=== PATIENT | female | born 1985 | race Caucasian/White ===

== ENCOUNTER 2020-05-19 21:28 | Emergency (ER) | payer MEDICAID ==
[~2020-05-19] VITALS: Ht 170.2 cm; Wt 102.3 kg
[~2020-05-19 21:28] MED LIST: DULO30CA96 PO; MELO-107 PO
[2020-05-19] MEDS ORDERED: IBUP-2070 PO (21:47)
[2020-05-20] MEDS: HYDROCODONE/ACETAMINOPHEN 5-325 MG TABLET PO ONE (00:24)
[2020-05-20 01:00] VITALS: BP 128/71
[2020-05-20] MEDS: KETOROLAC TROMETHAMINE 60 MG/2 ML VIAL IM ONE (01:18)
[2020-05-20] MEDS: METHOCARBAMOL 750 MG TABLET PO ONE (01:18)
== END 2020-05-20 01:35 | disposition home or self-care (01) ==
LOC: EMS 21:28
DX: M54.42 Lumbago with sciatica, left side (principal); J45.909 Unspecified asthma, uncomplicated; F17.210 Nicotine dependence, cigarettes, uncomplicated
CPT/HCPCS: 72100; 72170; 81025; 96372; 99284; J1885

== ENCOUNTER 2024-12-14 19:25 | Emergency (ER) | payer MEDICAID, OTHER ==
[~2024-12-14] VITALS: Ht 170.2 cm; Wt 75.5 kg
[~2024-12-14 19:25] MED LIST changes: -DULO30CA96 PO; +IBUP-1492 PO; -MELO-107 PO
[2024-12-14] MEDS ORDERED: OXYC5TAB3 PO (19:51)
[2024-12-14] MEDS ORDERED: METH-811 PO (19:51)
[2024-12-14] MEDS: KETOROLAC TROMETHAMINE 30 MG/ML VIAL IM ONE (23:01)
[2024-12-14] MEDS: LIDOCAINE 5% TRANSDERMAL PATCH TD ONE (23:01)
[2024-12-15] MEDS ORDERED: POLY17PO62 PO (00:36)
[2024-12-15 00:51] VITALS: BP 119/65; PULSE 68; RESP 16; TEMP 98.3; O2SAT 98
[2024-12-15] MEDS ORDERED: DOCU-385 PO (13:27)
== END 2024-12-15 01:17 | disposition home or self-care (01) ==
LOC: EMS 20:52
DX: M54.42 Lumbago with sciatica, left side (principal); M79.18 Myalgia, other site; J45.909 Unspecified asthma, uncomplicated; F17.210 Nicotine dependence, cigarettes, uncomplicated; Z88.0 Allergy status to penicillin; Z79.899 Other long term (current) drug therapy
CPT/HCPCS: 99283; 96372; J1885

== ENCOUNTER 2024-12-15 10:30 | Emergency (ER) | payer OTHER ==
[~2024-12-15] VITALS: Ht 170.2 cm; Wt 75.5 kg
[~2024-12-15 10:30] MED LIST changes: +METH-811 PO; +OXYC5TAB3 PO; +POLY17PO62 PO
[2024-12-15] MEDS: DOCUSATE SODIUM 100 MG CAPSULE PO ONE (11:43)
[2024-12-15] MEDS: SODIUM PHOSPHATE,MONO-DIBASIC 133 ML ENEMA PR ONE (11:48)
[2024-12-15] MEDS ORDERED: DOCU-385 PO (13:27)
[2024-12-15 14:06] VITALS: BP 115/72; PULSE 75; RESP 20; TEMP 98.605328; O2SAT 97
[2024-12-15] MEDS: MAGNESIUM CITRATE [LEMON] 300 ML ORAL SOLUTION PO ONE (14:06)
== END 2024-12-15 14:19 | disposition home or self-care (01) ==
LOC: EMS 10:30
DX: K59.00 Constipation, unspecified (principal); J45.909 Unspecified asthma, uncomplicated; F17.210 Nicotine dependence, cigarettes, uncomplicated; Z88.0 Allergy status to penicillin; Z91.048 Other nonmedicinal substance allergy status
CPT/HCPCS: 99284; Z7502; Z7610

== ENCOUNTER 2025-01-12 11:15 | Emergency (ER) | payer OTHER, MEDICAID ==
[~2025-01-12] VITALS: Ht 170.2 cm; Wt 77.3 kg
[~2025-01-12 11:15] MED LIST changes: +DOCU-385 PO; -IBUP-1492 PO
[2025-01-12 11:20] VITALS: BP 99/69; PULSE 80; RESP 18; TEMP 98.1; O2SAT 97
[2025-01-12] MEDS ORDERED: GABA-1181 PO (11:33)
[2025-01-12] MEDS: KETOROLAC TROMETHAMINE 30 MG/ML VIAL IM ONE (11:52)
[2025-01-12] MEDS: ACETAMINOPHEN 500 MG TABLET PO ONE (11:52)
[2025-01-12] MEDS ORDERED: ACET-3385 PO (11:56)
== END 2025-01-12 12:37 | disposition home or self-care (01) ==
LOC: EMS 11:15
DX: M51.17 Intervertebral disc disorders with radiculopathy, lumbosacral region (principal); M54.50 Low back pain, unspecified; G89.29 Other chronic pain; J45.909 Unspecified asthma, uncomplicated; F17.210 Nicotine dependence, cigarettes, uncomplicated; Z98.890 Other specified postprocedural states; Z88.0 Allergy status to penicillin; Z79.899 Other long term (current) drug therapy
CPT/HCPCS: 99283; 96372; J1885